=== PATIENT | male | born 1985 | race Caucasian/White ===

== ENCOUNTER 2018-02-06 10:50 | Emergency (ER) | payer OTHER ==
[2018-02-06 11:02] VITALS: BP 126/85
[2018-02-06] MEDS ORDERED: IBUPROFEN 600 MG TAB PO ONE (11:26)
--- NOTE | 2018-02-06 11:35 | EDPHY ---
H & P Time Seen by Provider: 02/06/18 11:02 HPI/ROS: HPI Right shoulder dislocation. 32-year-old male by private vehicle. This patient reports that he was doing physical therapy at home. He reports that he has a chronically dislocated oval right shoulder. He reports that he dislocated his right shoulder stretching his right upper extremity out doing an exercise. He states that he usually self reduces it but thinks that it may still be dislocated. He denies any history of trauma. No other complaint. ROS: Constitutional: No fever, no chills. No weakness. Musculoskeletal: No back pain. No neck pain. As above. Neurological: No focal weakness or altered sensation. Past medical history: Surgery on right shoulder in 2008. Otherwise as above. Social history: Nonsmoker. No alcohol. Here by himself. Physical Exam: General Appearance: Alert, no distress. This patient is responding to questions appropriately and in full sentences. This patient appears well- hydrated and well-nourished. Eyes: Pupils equal and round no pallor or injection. No lid edema, erythema or injection. Right shoulder exam: The axillary nerve distribution is intact. There is no gross deformity. The glenohumeral joint grossly appears intact and anatomically aligned correctly. There is no pain or deformity noted on palpation and inspection of the AC joint. The right upper extremity is neurovascularly intact. Neurological: Motor sensory function is grossly intact. Cranial nerves are normal. Gait is normal. Skin: Warm and dry, no rashes. Extremities are symmetrical except noted. All joints range without pain or impingement except noted. Psychiatric: No agitation. No depression. Database: EKG: Imaging: Right shoulder x-ray series: The glenohumeral joint appears normal anatomically. No other significant findings. Interpreted by me. Procedures: Emergency department course: Triage vital signs reviewed. I manipulated the right shoulder joint. Clinically it appears intact and not subluxed or dislocated. I have read the radiologist report. Regarding the small calcification that is seen, I do not feel there is any further need for emergent imaging in the emergency department. The patient was re-evaluated at 11:45 a.m.. The right upper extremity is neurovascularly intact. He is in a sling. He is comfortable at this time but feels the joint is inflamed and is requesting some pain medication. I agreed to prescribe him a short course of Vicodin. He is already taking meloxicam. He will follow up with his equipment validation specialist through the [facility]. We will give him a CD with his x-rays on that. I have instructed him to have his orthopedic specialists evaluate these films. He is also scheduled to have an MRI of his right shoulder in the near future at the [facility]. He feels comfortable going home otherwise. Return to emergency department precautions reviewed with him. All of his questions were answered. He was discharged from the emergency department in good condition. Patient requested Percocet. Initial prescription written was for Vicodin. This prescription was destroyed and he was given a prescription for Percocet number [id number]. Differential Diagnosis: The differential diagnosis on this patient includes but is not limited to spontaneously reduced right glenohumeral joint dislocation. Humeral neck fracture, AC joint injury, significant neurovascular injury unlikely. This represents a partial list of diagnoses considered. These considerations are based on history, physical exam, past history, reassessment and diagnostic testing. Smoking Status: Never smoked Constitutional: Initial Vital Signs Temperature (C) 36.8 C 02/06/18 10:58 Heart Rate 86 02/06/18 10:58 Respiratory Rate 16 02/06/18 10:58 Blood Pressure 126/85 H 02/06/18 10:58 O2 Sat (%) 97 02/06/18 10:58 O2 Delivery Mode Room Air Allergies/Adverse Reactions: No Known Allergies Allergy (Unverified 02/24/11 07:19) Home Medications: Medication Instructions Recorded Amoxicillin Trihydrate 1,000 mg PO Q12 10 Days cap 02/24/11 [Amoxicillin 500mg cap] NO HOME MEDICATIONS 02/24/11 oxyCODONE/APAP 5/325 [Percocet 1 tab PO Q6 PRN #20 tab 02/24/11 5/325 (*)] Hydrocodone/APAP 5/325 [Leeds 1 - 2 tab PO Q4-6PRN PRN #7 tab 02/06/18 5/325 (*)] oxyCODONE/APAP 5/325 [Percocet 1 - 2 tab PO Q4-6PRN PRN #7 tab 02/06/18 5/325 (*)] Medical Decision Making - Diagnostics Imaging Results: Imaging Impressions Shoulder X-Ray 02/06/18 11:00 Impression: Tiny calcification near the greater tuberosity, which could be related to acute or old fracture or calcific tendinitis. - Data Points Medications Given: Discontinued Medications Ibuprofen (Motrin) 600 mg PO EDNOW ONE Stop: 02/06/18 11:27 Last Admin: 02/06/18 11:50 Dose: Not Given Departure - Departure Disposition: Home, Routine, Self-Care Clinical Impression: Recurrent dislocation, right shoulder Condition: Good Instructions: Oxycodone/Acetaminophen (By mouth), Shoulder Dislocation (ED) Additional Instructions: Read and follow provided instructions. Follow-up with your equipment validation specialist at the [facility] or with Dr. Sheffield of the Orthopedic service or 1 of his partners in the next 2-3 days for re-evaluation and further management of her chronically dislocated oval right shoulder. Show your equipment validation specialist the x-rays that were taken today. Continue your meloxicam as prescribed. Narcotic pain medication: 1-2 every 4-6 hours as needed for pain. Do not drive while on this medication. Return to the emergency department for worsening pain, loss of sensation or numbness in your right upper extremity, discoloration or other serious concerns. Referrals: Eric Sheffield MD [Medical Doctor] - As per Instructions Prescriptions: Hydrocodone/APAP 5/325 [Leeds 5/325 (*)] 1 - 2 tab PO Q4-6PRN PRN #7 tab PRN Reason: Pain, Moderate oxyCODONE/APAP 5/325 [Percocet 5/325 (*)] 1 - 2 tab PO Q4-6PRN PRN #7 tab PRN Reason: For Moderate To Severe Pain
== END 2018-02-06 12:01 | disposition home or self-care (01) ==
LOC: CED 10:50
PROC: 0RSJXZZ Reposition Right Shoulder Joint, External Approach (ICD-10-PCS; principal; 2018-02-06)
DX: M24.411 Recurrent dislocation, right shoulder (principal)
CPT/HCPCS: 73030-PO; A4565